=== PATIENT | female | born 1960 ===

== ENCOUNTER 2020-09-03 16:41 | Outpatient (REF) | payer OTHER, SELFPAY | END 2020-09-03 16:42 | disposition home or self-care (01) | LOC: HO.LAB 16:41 | PROVIDERS: Visit Provider Internal Medicine | DX: Z20.828 Contact with and (suspected) exposure to other viral communicable diseases (principal) | CPT/HCPCS: C9803; U0003 ==

== ENCOUNTER 2020-10-01 05:34 | Emergency (ER) | payer OTHER, SELFPAY ==
[2020-10-01 05:59] VITALS: BP 140/74; PULSE 94; RESP 16; TEMP 37.7; O2SAT 98; BMI 25.7
[2020-10-01 06:08] VITALS: PULSE 92; O2SAT 98
--- NOTE | 2020-10-01 06:41 | ED.URI ---
HPI - URI/Sore Throat General Chief Complaint: Upper Respiratory Symptoms Stated Complaint: FEELS ILL COVID + Time Seen by Provider: 10/01/20 06:41 Source: patient Mode of arrival: ambulatory Limitations: no limitations History of Present Illness MD elicited complaint: fever and other (body aches, headache) Pertinent past history: other (dx with COVID yesterday) Onset (ago): day(s) (5) Consistency: constant Severity: severe Able to tolerate fluids by mouth: Yes Exacerbating factors: nothing Relieving factors: NSAID Context: sick contacts and other(s) with similar symptoms Associated symptoms: fever, chills, myalgias and headache Treatments prior to arrival: ibuprofen Related Data Previous Rx's Medication Instructions Recorded cyclobenzaprine 10 mg PO TID PRN #14 tab 10/01/20 hydrocodone-homatropine 5 ml PO Q6H PRN #60 ml 10/01/20 ondansetron 4 mg PO Q8H PRN #20 tab 10/01/20 Allergies Allergy/AdvReac Type Severity Reaction Status Date / Time No Known Allergies Allergy Verified 10/01/20 06:05 Review of Systems Review of Systems: Constitutional : positive Fever, positive Chills, positive fatigue, positive Malaise ENT/Mouth : positive sore throat, positive runny nose Eyes: No Discharge Cardiovascular : No Chest Pain, No SOB Respiratory : No Cough, No Sputum Gastrointestinal : No Nausea, No Vomiting, No Diarrhea Genitourinary : No Dysuria, No Urinary Frequency Musculoskeletal : positive Myalgia Skin : No rash Neuro : No Headache PMFSH Past Medical History Attestation statement: The following information was validated with the patient. Medical History Cholecystectomy planned Diabetes High cholesterol HTN (hypertension) Social History Social History Alcohol intake: never Smoking Status: Never smoker Use of substances other than those prescribed or required for medical reasons: No Advance Directives: No Physical Exam Vital Signs: Vital Signs: Last Vital Signs Temp 99.8 F 10/01/20 05:59 Pulse 94 10/01/20 05:59 Resp 16 10/01/20 05:59 BP 140/74 H 10/01/20 05:59 Pulse Ox 98 10/01/20 06:08 Body Mass Index 25.7 Appearance: Alert. Oriented X3. No acute distress. Eyes: Pupils equal, round and reactive to light. ENT: Pharynx normal. Neck: Normal inspection. Neck supple. CVS: Normal heart rate and rhythm. Pulses normal. Respiratory: No respiratory distress. Breath sounds normal. 97% on RA Abdomen: Soft and non-tender. Skin: Skin warm and dry. Normal skin color. Normal skin turgor. Extremities: No lower extremity edema. No calf ttp Neuro: Oriented X 3. No motor deficit. No sensory deficit. MDM - URI/Sore Throat MDM Narrative Medical decision making narrative: 60 yo female with COVID symptoms (headache, body aches, fatigue) since Wednesday works at local [employer] she is well hydrated, not toxic, clear lungs 97% on RA, will start on supportive meds and discussed expectant course and fever control. Discharge Plan Discharge Clinical Impression: COVID-19 Patient Disposition: Home, Self-Care Instructions: COVID-19 (Coronavirus Disease 2019) (ED) Additional Instructions: return to ED for any worsening symptoms or concerns Prescriptions: New cyclobenzaprine 10 mg tablet 10 mg PO TID PRN (Reason: muscle spasm) Qty: 14 RF: 0 hydrocodone-homatropine 5-1.5 mg/5 mL (5 mL) syrup 5 ml PO Q6H PRN (Reason: cough) Qty: 60 RF: 0 ondansetron 4 mg tablet,disintegrating 4 mg PO Q8H PRN (Reason: nausea and vomiting) Qty: 20 RF: 0 Stand Alone Forms: Work/School Release
[2020-10-01] MEDS: Acetaminophen 325 MG TABLET 650 MG PO (06:49)
== END 2020-10-01 06:55 | disposition home or self-care (01) ==
PROVIDERS: Emergency Provider Emergency Medicine
DX: U07.1 COVID-19 (principal); R50.9 Fever, unspecified; M79.10 Myalgia, unspecified site; Z79.899 Other long term (current) drug therapy
CPT/HCPCS: 99283; 99284

== ENCOUNTER 2020-10-16 12:38 | Outpatient (REF) | payer OTHER, SELFPAY | END 2020-10-16 12:39 | disposition home or self-care (01) | LOC: HO.LAB 12:38 | PROVIDERS: PCP Internal Medicine; Visit Provider Internal Medicine | DX: Z20.828 Contact with and (suspected) exposure to other viral communicable diseases (principal) | CPT/HCPCS: C9803; U0003 ==

== ENCOUNTER 2021-11-21 22:54 | Emergency (ER) | payer OTHER, SELFPAY ==
--- NOTE | 2021-11-21 | ECG_ITS ---
Test Reason : DIZZINESS Blood Pressure : / mmHG Vent. Rate : 067 BPM Atrial Rate : 067 BPM P-R Int : 178 ms QRS Dur : 068 ms QT Int : 412 ms P-R-T Axes : 048 042 040 degrees QTc Int : 435 ms Normal sinus rhythm Normal ECG No previous ECGs available Referred By: Generic ED Physician Electronically Signed By:NERISSA QUIJANO
[2021-11-21 23:26] VITALS: BP 156/61; PULSE 73; RESP 16; TEMP 36.7; O2SAT 98; BMI 25.7
--- NOTE | 2021-11-22 01:34 | ED_ITS ---
HPI - Dizziness General Chief Complaint: Dizziness Stated Complaint: vertigo Time Seen by Provider: 11/22/21 01:23 Source: patient Mode of arrival: ambulatory Limitations: no limitations History of Present Illness MD elicited complaint: dizziness and vertigo Pertinent past history: BPPV Onset (ago): day(s) (2) Timing: sudden onset and intermittent Severity: moderate Description: room spinning Context: change in body position History of similar symptoms: Yes Exacerbating factors: movement/ambulation, change in body position and position/lying down Relieving factors: remaining still and keeping eyes closed Associated symptoms: nausea and vomiting Related Data Previous Rx's Medication Instructions Recorded cyclobenzaprine 10 mg tablet 10 mg PO TID PRN #14 tab 10/01/20 hydrocodone-homatropine 5 mg-1.5 5 ml PO Q6H PRN #60 ml 10/01/20 mg/5 mL (5 mL) oral syrup ondansetron 4 mg disintegrating 4 mg PO Q8H PRN #20 tab 10/01/20 tablet meclizine 25 mg tablet 25 mg PO TID PRN #30 tab 11/22/21 ondansetron 4 mg disintegrating 4 mg PO Q8H PRN #20 tab 11/22/21 tablet Allergies Allergy/AdvReac Type Severity Reaction Status Date / Time No Known Allergies Allergy Verified 11/21/21 23:31 Review of Systems Verdana 4l Review of Systems: Verdana 4d Verdana 4d Constitutional : No Fever, No Chills, No Fatigue ENT/Mouth : No sore throat, No Rhinorrhea Eyes: No Eye Pain, No Swelling, No Redness Cardiovascular : No Chest Pain, No SOB, No Dyspnea on Exertion Respiratory : No Cough, No Sputum GastrointestinalGastrointestinal : pos Nausea, pos Vomiting, No Diarrhea, No abdominal Pain Genitourinary : No Dysuria, No Urinary Frequency, No Hematuria, Musculoskeletal : No joint pain, No Myalgias, No Joint Swelling Skin : No Skin Lesions, No rash Neuro : No Weakness, No Numbness, pos Dizziness, no Headache Psych : No Anxiety/Panic, No Depression Heme/Lymph: No Bruising, No Bleeding,No Lymphadenopathy Endocrine : No Polyuria, No Polydipsia All other systems reviewed and are negative PMFSH Past Medical History Medical History Cholecystectomy planned Diabetes High cholesterol HTN (hypertension) Vertigo Social History Social History (Updated 11/22/21 @ 02:11 by Doris Mireles DO) Alcohol intake: never Patient Tobacco Use Status: Never used Tobacco Physical Exam Verdana 4l Vital Signs: Verdana 4d Verdana 4d Vital Signs: Verdana 4d Verdana 4Bd Last Vital Signs Verdana 4d [employer] New 4d [employer] New 4d Temp 98.3 F 11/22/21 01:58 [employer] New 4d Pulse 72 11/22/21 01:58 [employer] New 4d Resp 16 11/22/21 01:58 BP 148/74 H 11/22/21 01:58 Pulse Ox 98 11/22/21 01:58 BMI result Body Mass Index 25.7 Appearance: Alert. Oriented X3. No acute distress. Eyes: Pupils equal, round and reactive to light. Nystagmus noted when turning head to right and c/o symptoms ENT: Pharynx normal. Normal TMs bilaterally Neck: Normal inspection. Neck supple. CVS: Normal heart rate and rhythm. Pulses normal. Respiratory: No respiratory distress. Breath sounds normal. Abdomen: Soft and non-tender. Skin: Skin warm and dry. Normal skin color. Normal skin turgor. Extremities: No lower extremity edema. No calf ttp Neuro: Oriented X 3. No motor deficit. No sensory deficit. CN 2-12 intact. no drift Course Course Course Narrative: patient feels better stable for DC MDM - Dizziness MDM Narrative Medical decision making narrative: 61 yo female with hx of vertigo, DM, HTN here with c/o room spinning when she moves or turns her head to the right - at this time no neuro deficits no CP/SOB no GIB symptoms, hx of similar presentatino in past with vertigo - will give antivert and ativan. Dispo per results and improvement. Given lack of neuro findings doubt posterior stroke ECG Data Attestation: I personally reviewed and interpreted this ECG as follows: ECG interpretation date: 11/22/21 ECG interpretation time: 02:13 Interpretation: Rate: 92 Rhythm: NSR [place]: normal Normal P waves. Normal ROGERS. Normal QRS complex. ST T wave : artifact but no JACOBO, normal qTC: normal prior studies: no acute ischemia The study has been interpreted contemporaneously by me. . Discharge Plan Discharge Clinical Impression: Dizziness Patient Disposition: Home, Self-Care Instructions: Dizziness (ED) Additional Instructions: return to ED for any worsening symptoms or concerns Prescriptions: New meclizine 25 mg tablet 25 mg PO TID PRN (Reason: dizziness) Qty: 30 0RF ondansetron 4 mg tablet,disintegrating 4 mg PO Q8H PRN (Reason: nausea and vomiting) Qty: 20 0RF No Action cyclobenzaprine 10 mg tablet 10 mg PO TID PRN (Reason: muscle spasm) Qty: 14 0RF hydrocodone-homatropine 5-1.5 mg/5 mL (5 mL) syrup 5 ml PO Q6H PRN (Reason: cough) Qty: 60 0RF ondansetron 4 mg tablet,disintegrating 4 mg PO Q8H PRN (Reason: nausea and vomiting) Qty: 20 0RF Referrals: Physician,Unknown J [Primary Care Provider] - 2 days (if not better) Stand Alone Forms: Work/School Release
[2021-11-22 01:58] VITALS: BP 148/74; PULSE 72; RESP 16; TEMP 36.8; O2SAT 98
[2021-11-22] MEDS: Meclizine HCl 25 MG TABLET PO (02:00)
[2021-11-22] MEDS: LORazepam 1 MG TABLET PO (02:00)
--- NOTE | 2021-11-22 02:02 | PC.NURSE ---
Pt resting on stretcher in NAD, RR even and unlabored, VSS on RA. Pt speaking in complete, clear sentences. No neuro deficits noted. Dr Mireles made aware of pt's report of SANCHEZ, plan to reassess pt's sx s/p meds as ordered. Stretcher in low locked position, rails raised, call albright within reach.
[2021-11-22 02:44] VITALS: BP 133/70; PULSE 68; RESP 16; O2SAT 97
== END 2021-11-22 02:57 | disposition home or self-care (01) ==
LOC: HO.ED 11-22 02:16
PROVIDERS: Emergency Provider Emergency Medicine
DX: R42 Dizziness and giddiness (principal); E11.9 Type 2 diabetes mellitus without complications; I10 Essential (primary) hypertension; E78.5 Hyperlipidemia, unspecified
CPT/HCPCS: 93005; 99283; 99284

== ENCOUNTER 2022-09-28 14:25 | Emergency (ER) | payer OTHER, SELFPAY ==
--- NOTE | ~2022-09-28 | XR_ITS ---
EXAMINATION: XR CHEST CLINICAL INFORMATION: Cough. COMPARISON: Chest x-ray 12/05/2009 TECHNIQUE: 2 views of the chest were obtained. FINDINGS: No significant abnormality is noted involving the heart, lungs, mediastinum, bony thorax or soft tissues. XR/XR chest 2V IMPRESSION: Unremarkable examination.
[2022-09-28 16:38] VITALS: BP 137/68; PULSE 103; RESP 18; TEMP 36.6; O2SAT 97; BMI 25.5
--- NOTE | 2022-09-28 16:41 | ED_ITS ---
HPI - General Adult General Chief complaint: Upper Respiratory Symptoms <Lisseth Clayton MD - Last Filed: 09/28/22 16:44> Stated complaint: fever <Lisseth Clayton MD - Last Filed: 09/28/22 16:44> Time Seen by Provider: 09/28/22 18:29 <Lisseth Clayton MD - Last Filed: 09/28/22 16:44> Source: patient <MINDY Galo - Last Filed: 09/28/22 21:14> Mode of arrival: ambulatory <MINDY Galo - Last Filed: 09/28/22 21:14> Limitations: no limitations <MINDY Galo - Last Filed: 09/28/22 21:14> History of Present Illness HPI narrative: Pt is a 62 yo assigned female at w/ PMHx of HTN, diabetes, and hyperlipidemia presenting w/ a 4 day hx of flu-like symptoms. Reports cough productive of yellow sputum, SOB, fever, myalgias, headache, nausea, and 1 episode of diarrhea today. Denies vomiting, blood in the stool, chest pain, abd pain, long flights, recent surgeries, or use of estrogen therapy. Reports taking tylenol and motrin, last dose around 1:30pm for her fever and symptoms. 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 <MINDY Galo - Last Filed: 09/28/22 21:14> Onset (ago): day(s) <MINDY Galo - Last Filed: 09/28/22 21:14> Related Data Home medications: Previous Rx's Medication Instructions Recorded cyclobenzaprine 10 mg tablet 10 mg PO TID PRN muscle spasm #14 10/01/20 tabs hydrocodone-homatropine 5 mg-1.5 5 ml PO Q6H PRN cough #60 mL 10/01/20 mg/5 mL (5 mL) oral syrup ondansetron 4 mg disintegrating 4 mg PO Q8H PRN nausea and 10/01/20 tablet vomiting #20 tabs meclizine 25 mg tablet 25 mg PO TID PRN dizziness #30 tabs 11/22/21 ondansetron 4 mg disintegrating 4 mg PO Q8H PRN nausea and 11/22/21 tablet vomiting #20 tabs benzonatate 100 mg capsule 100 mg PO TID PRN cough #14 caps 09/28/22 <Lisseth Clayton MD - Last Filed: 09/28/22 16:44> Allergies/adverse reactions: Allergies Allergy/AdvReac Type Severity Reaction Status Date / Time No Known Allergies Allergy Verified 09/28/22 16:43 <Lisseth Clayton MD - Last Filed: 09/28/22 16:44> Review of Systems Review of Systems: Constitutional: + Fever, No Chills, No Fatigue, No Malaise ENT/Mouth: No Ear Pain, No Nasal Congestion, No Sinus Pain, No Hoarseness, No sore throat, No Rhinorrhea, No Swallowing Difficulty Eyes: No Eye Pain, No Swelling, No Redness, No Discharge, No Vision Changes Cardiovascular: + Chest Pain when coughing, + SOB, No Dyspnea on Exertion, No Edema, No Palpitations Respiratory: + Cough, + Sputum, No Wheezing, No Dyspnea Gastrointestinal: + Nausea, No Vomiting, + Diarrhea, No Constipation, No Abdominal pain Genitourinary: No Dysuria, No Urinary Frequency, No Hematuria Musculoskeletal: No joint pain, + Myalgias, No Joint Swelling Skin: No Skin Lesions, No rash Neuro: No Weakness, No Dizziness, No Headache <MINDY Galo - Last Filed: 09/28/22 21:14> Yes all other systems are reviewed and are negative <MINDY Galo - Last Filed: 09/28/22 21:14> Constitutional: Constitutional: Reports as per HPI <MNIDY Galo - Last Filed: 09/28/22 21:14> FOR[facility] Past Medical History Attestation statement: The following information was validated with the patient. <MINDY Galo - Last Filed: 09/28/22 21:14> Medical History: Medical History Cholecystectomy planned Diabetes High cholesterol HTN (hypertension) Vertigo <Lisseth Clayton MD - Last Filed: 09/28/22 16:44> Social History Social History: Social History Alcohol intake: never Patient Tobacco Use Status: Never used Tobacco Advance Directives: No Advance Directives Information Provided: No <Lisseth Clayton MD - Last Filed: 09/28/22 16:44> Physical Exam ED Vital Signs: Vital Signs - 24 hr 09/28/22 16:38 Temperature 98 F Pulse Rate 103 H Respiratory Rate 18 Blood Pressure 137/68 Pulse Oximetry 97 Oxygen Delivery Method Room Air BMI result Body Mass Index 25.5 <Lisseth Clayton MD - Last Filed: 09/28/22 16:44> Vital Signs - 24 hr 09/28/22 16:38 Temperature 98 F Pulse Rate 103 H Respiratory Rate 18 Blood Pressure 137/68 Pulse Oximetry 97 Oxygen Delivery Method Room Air BMI result Body Mass Index 25.5 <MINDY Galo - Last Filed: 09/28/22 21:14> Const General: cooperative, healthy appearing, no acute distress, alert and awake <MINDY Galo - Last Filed: 09/28/22 21:14> Orientation/consciousness: patient oriented x3 <MINDY Galo - Last Filed: 09/28/22 21:14> Limitations: no limitations <MINDY Galo - Last Filed: 09/28/22 21:14> HENMT Head: Yes normal to inspection and Yes atraumatic <MINDY Galo - Last Filed: 09/28/22 21:14> Ears: hearing grossly normal bilaterally, external ears normal, TM's normal bilaterally and mastoids normal <MINDY Galo - Last Filed: 09/28/22 21:14> General nose exam: Normal external nose present <MINDY Galo - Last Filed: 09/28/22 21:14> Face and sinus: Yes normal facial exam <MINDY Galo - Last Filed: 09/28/22 21:14> Throat: Yes posterior oropharynx normal, Yes tonsils normal, Yes uvula midline, No peritonsillar mass, No uvula laterally displaced and No uvular edema <MINDY Galo - Last Filed: 09/28/22 21:14> Eyes General: appearance normal, both eyes and all related structures <MINDY Galo - Last Filed: 09/28/22 21:14> EOM: EOMs intact bilaterally <Julietaebonie Wilkinson PA - Last Filed: 09/28/22 21:14> Neck Neck: Yes normal visual inspection, Yes no lymphadenopathy and Yes no meningeal signs <Julieta Pouljeffry PA - Last Filed: 09/28/22 21:14> Resp Effort & Inspection: normal respiratory effort and no respiratory distress <Julieta Pouljeffry PA - Last Filed: 09/28/22 21:14> Auscultation: clear to auscultation bilaterally, no crackles, no rales, no rhonchi and no wheezes <Julieta Poulmoshet PA - Last Filed: 09/28/22 21:14> Cardio Rate: regular rate <Julieta Pouljeffry PA - Last Filed: 09/28/22 21:14> Heart sounds: S1 normal heart sound present and S2 normal heart sound present <Julieta Pouljeffry PA - Last Filed: 09/28/22 21:14> GI Inspection: Yes normal to inspection <Julieta Wilkinson PA - Last Filed: 09/28/22 21:14> Palpation (GI): Soft to palpation, nontender, no guarding and not rigid <Julieta Pouljeffry PA - Last Filed: 09/28/22 21:14> Skin Rashes: no rashes <Julieta Wilkinson PA - Last Filed: 09/28/22 21:14> Wounds: no wounds <Julieta Wilkinson PA - Last Filed: 09/28/22 21:14> Neuro General: patient oriented x3, tone normal and no meningeal signs <Julieta Wilkinson PA - Last Filed: 09/28/22 21:14> Gait exam (Neuro): Normal gait present <Julieta Wilkinson PA - Last Filed: 09/28/22 21:14> Extrem General: Yes normal to inspection, Yes no pedal edema and Yes no calf tenderness <Julieta Wilkinson PA - Last Filed: 09/28/22 21:14> Course Course Course Narrative: 62F fever since Wednesday, headache, bodyaches, sick contact?-yes. VS Reviewed GEN: NAD HEENT: NC/AT, EOMI/PERRLA, ears wnl, throat PULM: CTAB, no wheeze/rhonchi,rales CVS: ST, no murmurs Ext: warm, dry - CXR, SARS <Lisseth Clayton MD - Last Filed: 09/28/22 16:44> 62F fever since Wednesday, headache, bodyaches, sick contact?-yes. VS Reviewed GEN: NAD HEENT: NC/AT, EOMI/PERRLA, ears wnl, throat PULM: CTAB, no wheeze/rhonchi,rales CVS: ST, no murmurs Ext: warm, dry - CXR, SARS -2110--influenza A positive. Patient out of the window for Tamiflu. Chest x-ray unremarkable Results discussed with patient including worrisome signs and symptoms and strict return precautions, and when to return to the emergency department. They verbalized understanding and feel safe for discharge at this time. <MINDY Galo - Last Filed: 09/28/22 21:14> Medical Decision Making Medical Decision Making MDM Narrative: Pt is a 62 yo assigned female at w/ PMHx of HTN, diabetes, and hyperlipidemia presenting w/ a 4 day hx of flu-like symptoms. On exam mildly tachycardic likely from coughing, NAD, nontoxic appearing, lungs CTA, no pedal edema or calf tenderness. Concern for viral illness vs bronchitis vs pneumonia. 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, low suspicion for ACS/PE Plan: COVID-19/influenza/RSV testing, CXR <MINDY Galo - Last Filed: 09/28/22 21:14> Differential Diagnoses: Differential diagnosis (As above) Differential Diagnosis: The differential diagnosis associated with the patient?s presentation includes: <MINDY Galo - Last Filed: 09/28/22 21:14> Independent interpretation of EKG, rhythm strip, radiology study: Independent interp EKG,rhythm strip, radiology study I performed an independent interpretation of the: Plain X-Ray My interpretation is unremarkable <MINDY Galo - Last Filed: 09/28/22 21:14> Non-ED record review: Review of External (Non-ED) Record External record reviewed:: Outpatient record, Prior outpatient labs and Prior outpatient radiology <MINDY Galo Last Filed: 09/28/22 21:14> Tests considered but not performed: Tests Considered But Not Performed (Labs) The following testing was considered but ultimately not selected after discussion with patient/family. <MINDY Galo - Last Filed: 09/28/22 21:14> Chronic conditions affecting care (e.g., diabetes, HTN): Chronic conditions affecting care (e.g., diabetes, HTN) Patient?s care impacted by: Diabetes and Hypertension <MINDY Galo - Last Filed: 09/28/22 21:14> Discharge Plan Discharge Clinical Impression: Influenza A <Lisseth Clayton MD - Last Filed: 09/28/22 16:44> Patient Disposition: Home, Self-Care <Lisseth Clayton MD - Last Filed: 09/28/22 16:44> Instructions: Influenza (ED) <Lisseth Clayton MD - Last Filed: 09/28/22 16:44> Additional Instructions: You have influenza A. Take Tylenol and Motrin as needed. Rest. Stay hydrated. Wash your hands and cover her mouth. Youre contagious Your x-ray was unremarkable. If symptoms persist or worsen return to the emergency department Dee Aguayo are for cough take as needed <Lisseth Clayton MD - Last Filed: 09/28/22 16:44> Prescriptions: New benzonatate 100 mg capsule 100 mg PO TID PRN (Reason: cough) Qty: 14 0RF No Action cyclobenzaprine 10 mg tablet 10 mg PO TID PRN (Reason: muscle spasm) Qty: 14 0RF hydrocodone-homatropine 5-1.5 mg/5 mL (5 mL) syrup 5 ml PO Q6H PRN (Reason: cough) Qty: 60 0RF ondansetron 4 mg tablet,disintegrating 4 mg PO Q8H PRN (Reason: nausea and vomiting) Qty: 20 0RF meclizine 25 mg tablet 25 mg PO TID PRN (Reason: dizziness) Qty: 30 0RF ondansetron 4 mg tablet,disintegrating 4 mg PO Q8H PRN (Reason: nausea and vomiting) Qty: 20 0RF <Lisseth Clayton MD - Last Filed: 09/28/22 16:44> Referrals: Rajesh Hernandez MD [Primary Care Provider] - 5 days <Lisseth Clayton MD - Last Filed: 09/28/22 16:44> Stand Alone Forms: Work/School Release <Lisseth Clayton MD - Last Filed: 09/28/22 16:44>
[2022-09-28 20:25] LABS: Influenza A PCR POSITIVE (Negative); Influenza B PCR NEGATIVE (Negative); Resp Syncy Virus RNA Qual PCR NEGATIVE (Negative); SARS COV2 PCR INHOUSE NEGATIVE (Negative)
[2022-09-28 21:11] VITALS: BP 110/58; PULSE 71; RESP 12; TEMP 37.2; O2SAT 96
--- NOTE | 2022-09-28 21:27 | PC.NURSE ---
Eval by PA, pt positive for influenza A. Plan for DC home, pt aware and agreeable to plan of care.
== END 2022-09-28 21:31 | disposition home or self-care (01) ==
PROVIDERS: Student in an Organized Health Care Education/Training Program; Emergency Provider Emergency Medicine; PCP Internal Medicine
DX: J10.1 Influenza due to other identified influenza virus with other respiratory manifestations (principal); R50.9 Fever, unspecified; R06.02 Shortness of breath; M79.10 Myalgia, unspecified site; R51.9 Headache, unspecified; R19.7 Diarrhea, unspecified; Z20.822 Contact with and (suspected) exposure to COVID-19; Z79.899 Other long term (current) drug therapy
CPT/HCPCS: 0241U; 71046; 99283

== ENCOUNTER 2023-04-20 07:51 | Outpatient (REF) | payer OTHER, SELFPAY ==
[2023-04-20 08:01] LABS: MANUAL DIFF FLAG NO
[2023-04-20 08:18] LABS: Basophils Absolute Auto 0.1 X10*3/uL (0.0-0.2); Basophils Percent Auto 0.6 % (0-2); Eosinophils Absolute Auto 0.3 X10*3/uL (0.0-0.4); Eosinophils Percent Auto 3.6 % (0-4); Hematocrit 33.7 % (37.0-47.0); Hemoglobin 11.4 g/dl (12.0-16.0); Imm Gran Abs Auto 0.02 X10*3/uL (0.00-0.03); Imm Gran Pct Auto 0.3 % (0.0-0.4); Lymphocytes Absolute Auto 3.7 X10*3/uL (1.2-4.9); Lymphocytes Percent Auto 46.5 % (20-40); Mean Corpuscular HGB Conc 33.8 g/dl (31.0-35.0); Mean Corpuscular Volume 88.7 fL (80.0-98.0); Mean Platelet Volume 10.4 fL (9.4-12.3); Monocytes Absolute Auto 0.4 X10*3/uL (0.1-1.2); Monocytes Percent Auto 5.3 % (2-11); Neutrophils Absolute Auto 3.5 x10*3/uL (2.0-8.3); Neutrophils Percent Auto 43.7 % (45-73); Platelet Count 422 X10*3/uL (160-400); Red Cell Distribution Width 13.5 % (11.0-16.0)
[2023-04-20 08:37] LABS: Estimated Average Glucose 286 mg/dL; Hemoglobin A1c % 11.6 %
[2023-04-20 09:20] LABS: Creatinine Urine 190.34 mg/dL; Microalbum/Creatinine Ratio Ur 20.4 ug/mg cr
[2023-04-20 09:21] LABS: Alanine Aminotransferase 10 U/L (0-31); Albumin Level 3.9 g/dL (3.5-5.0); Alkaline Phosphatase 82 U/L (39-117); Anion Gap 14 (12-20); Aspartate Amino Transferase 13 U/L (5-31); Bilirubin Total 0.4 mg/dL (0.0-1.0); Blood Urea Nitrogen 19 mg/dL (9-16); Calcium 9.3 mg/dL (8.4-10.2); Carbon Dioxide 24 mmol/L (22-29); Chloride 105 mmol/L (96-108); Cholesterol 274 mg/dL; Estimated Glomerular Filt Rate > 60; Glucose Random 278 mg/dL (60-115); HDL Cholesterol 53 mg/dL; LDL Cholesterol Calculated 200 mg/dl; Potassium 3.9 mmol/L (3.3-5.1); Sodium 139 mmol/L (135-145); Total Protein 7.1 g/dL (6.5-8.0); Triglycerides 105 mg/dL
[2023-04-20 09:30] LABS: Vitamin D 25-OH Total 31.5 ng/mL (>30)
== END 2023-04-20 07:52 | disposition home or self-care (01) ==
LOC: HO.LAB 07:51
PROVIDERS: PCP Internal Medicine; Visit Provider Internal Medicine
DX: Z00.01 Encounter for general adult medical examination with abnormal findings (principal); E11.65 Type 2 diabetes mellitus with hyperglycemia; E78.00 Pure hypercholesterolemia, unspecified; H81.10 Benign paroxysmal vertigo, unspecified ear; I10 Essential (primary) hypertension; M75.02 Adhesive capsulitis of left shoulder; M81.8 Other osteoporosis without current pathological fracture
CPT/HCPCS: 36415; 80053; 80061; 82043; 82306; 83036; 85025

== ENCOUNTER 2023-07-22 06:42 | Outpatient (REF) | payer OTHER, SELFPAY ==
[2023-07-22 07:14] LABS: Estimated Average Glucose 232 mg/dL; Hemoglobin A1c % 9.7 % (<6.0)
[2023-07-22 07:22] LABS: Alanine Aminotransferase 8 U/L (0-31); Albumin Level 4.3 g/dL (3.5-5.0); Alkaline Phosphatase 78 U/L (39-117); Anion Gap 13 (12-20); Aspartate Amino Transferase 14 U/L (5-31); Bilirubin Total 0.2 mg/dL (0.0-1.0); Blood Urea Nitrogen 23 mg/dL (9-16); Carbon Dioxide 26 mmol/L (22-29); Chloride 105 mmol/L (96-108); Cholesterol 152 mg/dL (<200); Estimated Glomerular Filt Rate 56; Glucose Random 190 mg/dL (60-115); HDL Cholesterol 54 mg/dL (>40); LDL Cholesterol Calculated 84 mg/dL (<100); Potassium 3.9 mmol/L (3.3-5.1); Sodium 140 mmol/L (135-145); Total Protein 7.8 g/dL (6.5-8.0); Triglycerides 71 mg/dL (<150)
== END 2023-07-22 06:43 | disposition home or self-care (01) ==
LOC: HO.LAB 06:42
PROVIDERS: PCP Internal Medicine; Visit Provider Internal Medicine
DX: E11.65 Type 2 diabetes mellitus with hyperglycemia (principal); E78.00 Pure hypercholesterolemia, unspecified; R80.8 Other proteinuria
CPT/HCPCS: 36415; 80053; 80061; 83036

== ENCOUNTER 2023-08-06 14:00 | Outpatient (RCR) | payer OTHER, SELFPAY ==
--- NOTE | 2023-06-29 18:15 | MHC.PT.EP ---
[facility] [place] Office [place] Office [place] Office [address] Nathan Chávez [address] [phone] F: [phone] F: [phone] F: [phone] F: [phone] Physical Therapy Plan of Care Date of Evaluation: 06/29/23 Date of Surgery: Diagnosis: RIGHT shoulder adhesive capsulitis Assessment: Patient is a pleasant 62 y.o. female who is referred to PT by Dr. Mago Horn MD, with Dx of RIGHT shoulder adhesive capsulitis. She is also showing subacromial impingement syndrome, cannot rule out RTC involvement at this time. Patient impairments include pain, capsular pattern, capsular end feel, limited ROM, weakness, poor posture. Patient current functional limitations are reaching overhead, washing hair, picking up things from refrigerator, carrying groceries, reach behind back, driving to turn steering wheel, sleeping on R side. Patient will benefit from skilled PT to address aforementioned impairments and functional limitations to meet established goals. Frequency and Duration: The patient will be seen 1-2x/week for 4 weeks Short Term Goals: 2 weeks Patient demonstrates consistency and independence with HEP to self manage symptoms. Retirement Goals: 4 weeks Patient presents with increased R shoulder flexion 160 degrees to reach overhead to high shelf/cabinet. Patient presents with increased R shoulder IR 70 degrees to reach behind back to put on bra. Treatment Plan: Modalities to reduce pain, spasms and effusion. Manual therapy to restore motion and function. Therapeutic exercise to improve strength and flexibility. Neuromuscular re-education for posture and balance. Therapeutic activities to return to functional activities of daily living. Electronically signed by: Pauline Phelps, PT, DPT Please sign and return to therapist. Thank you for your referral.
--- NOTE | 2023-10-04 16:33 | MHC.PT.DC ---
[facility] [place] Office [place] Office [place] Office [address] Nathan Chávez [address] [phone] F: [phone] F: [phone] F: [phone] F: [phone] Physical Therapy Discharge Report Diagnosis: RIGHT shoulder adhesive capsulitis Date of Surgery: Date of Evaluation: 06/29/23 Date of Discharge: 10/04/23 Treatments to Date: 4 Cancellations to Date: No Shows to Date: Discharge Status: Improved Function Independent with HEP Patient Elected to Stop Discharge Summary: Patient canceled her last 2 scheduled PT visits and ceased attending PT on her own accord. Her last visit was on 08/06/23 and assessment read, Her AROM in her R shoulder continues to improve and she shows consistency with HEP as she demonstrates great form. 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 Electronically signed by: Pauline Phelps, PT, DPT Please sign and return to therapist. Thank you for your referral.
== END 2023-10-04 16:33 | disposition home or self-care (01) ==
LOC: HO.PT 14:00
PROVIDERS: PCP Internal Medicine; Visit Provider Internal Medicine
DX: M75.01 Adhesive capsulitis of right shoulder (principal)
CPT/HCPCS: 97110; 97140; 97161; 97530

== ENCOUNTER 2023-10-20 07:01 | Outpatient (REF) | payer OTHER, SELFPAY ==
[2023-10-20 07:35] LABS: Estimated Average Glucose 280 mg/dL; Hemoglobin A1c % 11.4 % (<6.0)
[2023-10-20 07:48] LABS: Alanine Aminotransferase 17 U/L (0-31); Albumin Level 4.2 g/dL (3.5-5.0); Alkaline Phosphatase 81 U/L (39-117); Anion Gap 12 (12-20); Aspartate Amino Transferase 19 U/L (5-31); Bilirubin Total 0.3 mg/dL (0.0-1.0); Blood Urea Nitrogen 22 mg/dL (9-16); Calcium 9.7 mg/dL (8.4-10.2); Carbon Dioxide 26 mmol/L (22-29); Chloride 104 mmol/L (96-108); Estimated Glomerular Filt Rate 60; Glucose Random 263 mg/dL (60-115); Potassium 3.9 mmol/L (3.3-5.1); Sodium 138 mmol/L (135-145); Total Protein 7.9 g/dL (6.5-8.0)
== END 2023-10-20 07:02 | disposition home or self-care (01) ==
LOC: HO.LAB 07:01
PROVIDERS: PCP Internal Medicine; Visit Provider Internal Medicine
DX: E11.65 Type 2 diabetes mellitus with hyperglycemia (principal); E78.00 Pure hypercholesterolemia, unspecified; I10 Essential (primary) hypertension; R80.8 Other proteinuria
CPT/HCPCS: 36415; 80053; 83036

== ENCOUNTER 2024-02-17 06:35 | Outpatient (REF) | payer OTHER, SELFPAY ==
[2024-02-17 08:07] LABS: Estimated Average Glucose 249 mg/dL; Hemoglobin A1c % 10.3 % (<6.0)
[2024-02-17 08:42] LABS: Alanine Aminotransferase 11 U/L (0-31); Albumin Level 4.2 g/dL (3.5-5.0); Alkaline Phosphatase 67 U/L (39-117); Anion Gap 10 (12-20); Aspartate Amino Transferase 12 U/L (5-31); Bilirubin Total 0.2 mg/dL (0.0-1.0); Blood Urea Nitrogen 19 mg/dL (9-16); Calcium 9.8 mg/dL (8.4-10.2); Carbon Dioxide 30 mmol/L (22-29); Chloride 104 mmol/L (96-108); Estimated Glomerular Filt Rate > 60; Glucose Random 243 mg/dL (60-115); Sodium 140 mmol/L (135-145); Total Protein 7.6 g/dL (6.5-8.0)
== END 2024-02-17 06:36 | disposition home or self-care (01) ==
LOC: HO.LAB 06:35
PROVIDERS: PCP Internal Medicine; Visit Provider Internal Medicine
DX: E11.9 Type 2 diabetes mellitus without complications (principal); E78.00 Pure hypercholesterolemia, unspecified; I10 Essential (primary) hypertension
CPT/HCPCS: 36415; 80053; 83036

== ENCOUNTER 2024-05-30 09:04 | Outpatient (REF) | payer OTHER, SELFPAY ==
[2024-05-30 09:27] LABS: MANUAL DIFF FLAG NO
[2024-05-30 10:14] LABS: Basophils Absolute Auto 0.1 X10*3/uL (0.0-0.2); Basophils Percent Auto 0.8 % (0-2); Eosinophils Absolute Auto 0.2 X10*3/uL (0.0-0.4); Eosinophils Percent Auto 2.2 % (0-4); Hematocrit 32.2 % (37.0-47.0); Imm Gran Abs Auto 0.03 X10*3/uL (0.00-0.03); Imm Gran Pct Auto 0.4 % (0.0-0.4); Lymphocytes Absolute Auto 3.1 X10*3/uL (1.2-4.9); Lymphocytes Percent Auto 39.9 % (20-40); Mean Corpuscular HGB Conc 34.2 g/dl (31.0-35.0); Mean Corpuscular Hemoglobin 30.6 pg (27.0-33.0); Mean Corpuscular Volume 89.4 fL (80.0-98.0); Mean Platelet Volume 10.4 fL (9.4-12.3); Monocytes Absolute Auto 0.4 X10*3/uL (0.1-1.2); Monocytes Percent Auto 5.3 % (2-11); Neutrophils Percent Auto 51.4 % (45-73); Platelet Count 408 X10*3/uL (160-400); Red Cell Distribution Width 14.8 % (11.0-16.0); White Blood Count 7.7 X10*3/uL (4.8-10.8)
[2024-05-30 11:17] LABS: Alanine Aminotransferase 13 U/L (0-31); Albumin Level 4.3 g/dL (3.5-5.0); Alkaline Phosphatase 66 U/L (39-117); Anion Gap 14 (12-20); Aspartate Amino Transferase 14 U/L (5-31); Bilirubin Total 0.2 mg/dL (0.0-1.0); Blood Urea Nitrogen 23 mg/dL (9-16); Calcium 9.8 mg/dL (8.4-10.2); Carbon Dioxide 27 mmol/L (22-29); Chloride 104 mmol/L (96-108); Estimated Glomerular Filt Rate 56; Glucose Random 156 mg/dL (60-115); Potassium 4.3 mmol/L (3.3-5.1); Sodium 141 mmol/L (135-145); Total Protein 7.6 g/dL (6.5-8.0)
[2024-05-30 11:36] LABS: Creatinine Urine 103.83 mg/dL; Microalbum/Creatinine Ratio Ur 54.8 ug/mg cr (<30)
[2024-05-30 12:14] LABS: Vitamin B12 426 pg/mL (200-900)
[2024-05-30 12:48] LABS: Estimated Average Glucose 186 mg/dL; Hemoglobin A1c % 8.1 % (<6.0)
== END 2024-05-30 09:05 | disposition home or self-care (01) ==
LOC: HO.LAB 09:04
PROVIDERS: PCP Internal Medicine; Visit Provider Internal Medicine
DX: E11.65 Type 2 diabetes mellitus with hyperglycemia (principal); E78.00 Pure hypercholesterolemia, unspecified; I10 Essential (primary) hypertension; R80.8 Other proteinuria
CPT/HCPCS: 36415; 80053; 82043; 82570; 82607; 83036; 85025

== ENCOUNTER 2024-09-06 07:38 | Outpatient (REF) | payer OTHER, SELFPAY ==
[2024-09-06 08:44] LABS: Estimated Average Glucose 197 mg/dL; Hemoglobin A1c % 8.5 % (<6.0); Total Hemoglobin (HGBA1C) 2971.1707 umol/L
[2024-09-06 08:56] LABS: Alanine Aminotransferase 26 U/L (0-31); Albumin Level 4.3 g/dL (3.5-5.0); Alkaline Phosphatase 81 U/L (39-117); Anion Gap 13 (12-20); Aspartate Amino Transferase 24 U/L (5-31); Bilirubin Total 0.2 mg/dL (0.0-1.0); Blood Urea Nitrogen 21 mg/dL (9-16); Calcium 9.3 mg/dL (8.4-10.2); Carbon Dioxide 27 mmol/L (22-29); Chloride 104 mmol/L (96-108); Estimated Glomerular Filt Rate 53; Glucose Random 205 mg/dL (60-115); Potassium 4.1 mmol/L (3.3-5.1); Sodium 140 mmol/L (135-145); Total Protein 7.7 g/dL (6.5-8.0)
== END 2024-09-06 07:39 | disposition home or self-care (01) ==
LOC: HO.LAB 07:38
PROVIDERS: PCP Internal Medicine; Visit Provider Internal Medicine
DX: Z00.00 Encounter for general adult medical examination without abnormal findings (principal); E11.649 Type 2 diabetes mellitus with hypoglycemia without coma; E78.00 Pure hypercholesterolemia, unspecified; I10 Essential (primary) hypertension; K21.9 Gastro-esophageal reflux disease without esophagitis; R80.8 Other proteinuria
CPT/HCPCS: 36415; 80053; 83036

== ENCOUNTER 2024-12-22 06:29 | Outpatient (REF) | payer OTHER, SELFPAY ==
[2024-12-22 07:55] LABS: Estimated Average Glucose 180 mg/dL; Hemoglobin A1C 188.5328 umol/L; Hemoglobin A1c % 7.9 % (<6.0); Total Hemoglobin (HGBA1C) 2979.2777 umol/L
[2024-12-22 08:36] LABS: Alanine Aminotransferase 12 U/L (0-31); Albumin Level 4.1 g/dL (3.5-5.0); Alkaline Phosphatase 76 U/L (39-117); Anion Gap 13 (12-20); Aspartate Amino Transferase 18 U/L (5-31); Bilirubin Total 0.1 mg/dL (0.0-1.0); Blood Urea Nitrogen 21 mg/dL (9-16); Calcium 9.6 mg/dL (8.4-10.2); Carbon Dioxide 25 mmol/L (22-29); Chloride 107 mmol/L (96-108); Estimated Glomerular Filt Rate > 60; Glucose Random 169 mg/dL (60-115); Sodium 141 mmol/L (135-145); Total Protein 7.8 g/dL (6.5-8.0)
== END 2024-12-22 06:30 | disposition home or self-care (01) ==
LOC: HO.LAB 06:29
PROVIDERS: PCP Internal Medicine; Visit Provider Internal Medicine
DX: E11.649 Type 2 diabetes mellitus with hypoglycemia without coma (principal); R80.8 Other proteinuria; Z68.23 Body mass index [BMI] 23.0-23.9, adult
CPT/HCPCS: 36415; 80053; 83036

== ENCOUNTER 2025-03-29 06:35 | Outpatient (REF) | payer OTHER, SELFPAY ==
--- OUTSIDE RECORDS SUMMARY | 2025-03-29 06:38 | XMS_ITS | Clinical Summary ---
Author Organization [employer] [facility] ity Address [address] [place] [address] Care Team Providers Care Plate Mill Mill Hand Name Role Phone Unavailable Primary Care Provider Unavailabl e Social History Tobacco Use Types Packs/Day Years Used Date Smoking Tobacco: Never Assessed Comments Unknown Sex and Gender Information Value Date Recorded Sex Assigned at Not on file Legal Sex Female 8:56 PM EST Gender Identity Not on file Sexual Orientation Not on file Plan of Treatment Health Maintenance Due Date Last Done Comments DTaP,Tdap,and Td Vaccines (1 - Tdap) 1981 Cervical Cancer Screening: Pap Smear 1983 Pneumococcal Vaccine: 50+ Years (1 of 1 - PCV) 2012 Zoster Vaccines (1 of 2) 2012 Colorectal Cancer Screening: Colonoscopy 10/07/2022 Depression Screening 10/07/2022 HIV Screening 10/07/2022 Hepatitis C Screening 10/07/2022 Social Influencers of Health Screening 10/07/2022 COVID-19 Vaccine ( - season) 2024 Influenza Vaccine (Season Ended) 2025 Breast Cancer Screening 08/23/2026 08/23/20 24, 12/30/2022, 07/19/2020, Additional history exists RSV Immunization Adult Patients (1 - 1-dose 75+ series) 2037 HIB Vaccines Aged Out No longer eligi ble based on patient's age to complete this topic HPV Vaccines Aged Out No longer eligi ble based on patient's age to complete this topic Hepatitis A Vaccines Aged Out No long er eligible based on patient's age to complete this topic Hepatitis B Vaccines Aged Out No long er eligible based on patient's age to complete this topic IPV Vaccines Aged Out No longer eligi ble based on patient's age to complete this topic MMR Vaccines Aged Out No longer eligi ble based on patient's age to complete this topic Meningococcal ACWY Vaccine Aged Out N o longer eligible based on patient's age to complete this topic Meningococcal B Vaccine Aged Out No l onger eligible based on patient's age to complete this topic Pneumococcal Vaccine: Pediatrics (0 to 5 Years) and At-Risk Patients (6 to 64 Years) Aged Out No longer eligible based on patient's age to complete this topic RSV Immunization Patients Under 20 months Aged Out No longer eligible based on patient's age to complete this topic Varicella Vaccines Aged Out No longer eligible based on patient's age to complete this topic Procedures Procedure Name Priority Date/Time Associated Diagnosis Comments RAUL SCREENING DIGITAL Routine 08/23/2024 3:50 PM EDT from Last 3 Months or Most Recently Relevant to Health Maintenance Results * RAUL SCREENING DIGITAL (08/23/2024 3:50 PM EDT) Anatomical Region Laterality Modality Mammography 08/23/2024 1:55 PM EDT Narrative 08/23/2024 3:[address] [facility] Diagnostic Imaging Department [address] [place] [address] Patient: ??DENISHA BARRERA ?/Age/Sex: 1960 - 63 - F Unit#: ??[id number] ? Location/Status: ??SPDIMAM/REG CLI ? Mnemonic/Ordering Site: ??[facility] Ordering Physician: ??MAGO HOFFMAN MD [facility] Screening Digital - 08/23/24 - 1422 Report Status:Signed EXAM: Raul Screening Digital EXAM DATE AND TIME: 08/23/2024 2:22 PM HISTORY: ??Screening. COMPARISON: ??12/29/22, 07/19/20, 12/14/18 TECHNIQUE: Bilateral digital breast tomosynthesis was performed in the CC and MLO projections. Computer aided detection with [employer] 3D 3.1 was employed. TISSUE DENSITY: b. There are scattered areas of fibroglandular density. FINDINGS: No suspicious masses, grouped microcalcifications, or areas of architectural distortion are seen. The skin and vascularity are unremarkable. IMPRESSION: Stable mammographic appearance of the breasts. ??No evidence of malignancy is seen. A negative mammogram in the presence of a clinically suspicious palpable abnormality does not preclude the possibility of malignancy or alter the indications for biopsy. BI-RADS: ??Category 1: Negative RECOMMENDATION(S): 1: Routine screening mammogram BILATERAL in 1 year. Mammogram performed at [facility] [place] [address] Dictating Physician: ??KAYLIE DEL ANGEL MD Electronically Signed by: ??KAYLIE DEL ANGEL MD Dic Date/Time: ??08/23/24 1549 Sign date/Time: ??08/23/24 1550 Procedure Note Kaylie Del Angel MD - 08/26/2024 [facility] Diagnostic Imaging Department [address] [place] [address] Patient: DENISHA BARRERA/Age/Sex: 1960 - 63 - F Unit#: [id number] Location/Status: SPDIMAM/REG CLI Mnemonic/Ordering Site: [facility] Ordering Physician: MAGO HOFFMAN MD [facility] Screening Digital - 08/23/24 - 1422 Report Status:Signed EXAM: [facility] Screening Digital EXAM DATE AND TIME: 08/23/2024 2:22 PM HISTORY: Screening. COMPARISON: 12/29/22, 07/19/20, 12/14/18 TECHNIQUE: Bilateral digital breast tomosynthesis was performed in the CCand MLO projections. Computer aided detection with [employer] 3D 3.1was employed. TISSUE DENSITY: b. There are scattered areas of fibroglandular density. FINDINGS: No suspicious masses, grouped microcalcifications, or areas ofarchitectural distortion are seen. The skin and vascularity are unremarkable. IMPRESSION: Stable mammographic appearance of the breasts. No evidence of malignancyis seen. A negative mammogram in the presence of a clinically suspicious palpable abnormality does not preclude the possibility of malignancy or alter the indications for biopsy. BI-RADS: Category 1: Negative RECOMMENDATION(S): 1: Routine screening mammogram BILATERAL in 1 year. Mammogram performed at [facility] [place] [address] Dictating Physician: KAYLIE DEL ANGEL MD Electronically Signed by: KAYLIE DEL ANGEL MD Dic Date/Time: 08/23/24 1549 Sign date/Time: 08/23/24 2723 us Mago Hoffman MD IMG BI PROCEDURES Final Resul t from Last 3 Months or Most Recently Relevant to Health Maintenance
[2025-03-29 07:33] LABS: Estimated Average Glucose 194 mg/dL; Hemoglobin A1c % 8.4 % (<6.0)
[2025-03-29 07:57] LABS: Alanine Aminotransferase 10 U/L (0-31); Albumin Level 4.2 g/dL (3.5-5.0); Alkaline Phosphatase 79 U/L (39-117); Anion Gap 11 (12-20); Aspartate Amino Transferase 17 U/L (5-31); Bilirubin Total 0.1 mg/dL (0.0-1.0); Blood Urea Nitrogen 20 mg/dL (9-16); Calcium 9.8 mg/dL (8.4-10.2); Carbon Dioxide 25 mmol/L (22-29); Chloride 107 mmol/L (96-108); Estimated Glomerular Filt Rate 58; Glucose Random 157 mg/dL (60-115); Potassium 3.9 mmol/L (3.3-5.1); Sodium 139 mmol/L (135-145); Total Protein 7.3 g/dL (6.5-8.0)
== END 2025-03-29 06:36 | disposition home or self-care (01) ==
LOC: HO.LAB 06:35
PROVIDERS: PCP Internal Medicine; Visit Provider Internal Medicine
DX: I10 Essential (primary) hypertension (principal); R80.8 Other proteinuria; Z68.24 Body mass index [BMI] 24.0-24.9, adult; Z13.1 Encounter for screening for diabetes mellitus
CPT/HCPCS: 36415; 80053; 83036

== ENCOUNTER 2025-07-09 06:46 | Outpatient (REF) | payer OTHER, SELFPAY ==
--- OUTSIDE RECORDS SUMMARY | 2025-07-09 06:50 | XMS_ITS | Clinical Summary ---
Author Organization [employer] [facility] ity Address [address] [place] [address] Care Team Providers Care Store Keeper Name Role Phone Unavailable Primary Care Provider [...] 2) 2012 Colorectal Cancer Screening: Colonoscopy 10/07/2022 HIV Screening 10/07/2022 Hepatitis C Screening 10/07/2022 Social Influencers of Health Screening 10/07/2022 Depression Screening 10/25/2024 COVID-19 Vaccine ( season) 2025 Influenza Vaccine (#1) 2025 Breast Cancer Screening 08/23/2026 08/23/20 24, [...] PM EDT Narrative 08/23/2024 3:50 PM EDT [facility] Diagnostic Imaging Department [address] [place] [address] Patient: DENISHA BARRERA /Age/Sex: 1960 - 63 - F Unit#: [id number] Location/Status: SPDIMAM/REG CLI Mnemonic/Ordering Site: [facility] Ordering Physician: MAGO HOFFMAN MD Raul Screening Digital - 08/23/24 - [id number] Report Status:Signed EXAM: Raul Screening Digital EXAM DATE AND TIME: 08/23/2024 2:22 PM HISTORY: Screening. COMPARISON: 12/29/22, 07/19/20, 12/14/18 TECHNIQUE: Bilateral digital breast tomosynthesis was performed in the CC and MLO projections. Computer aided detection with [employer] 3D 3.1 was employed. TISSUE DENSITY: b. There are scattered areas of fibroglandular density. FINDINGS: No suspicious masses, grouped microcalcifications, or areas of architectural distortion are seen. The skin and vascularity are unremarkable. IMPRESSION: Stable mammographic appearance of the breasts. No evidence of malignancy is seen. A negative mammogram in the presence of a clinically suspicious palpable abnormality does not preclude the possibility of malignancy or alter the indications for biopsy. BI-RADS: Category 1: Negative RECOMMENDATION(S): 1: Routine screening mammogram BILATERAL in 1 year. Mammogram performed at [facility] [place] [address] Dictating Physician: KAYLIE DEL ANGEL MD Electronically Signed by: KAYLIE DEL ANGEL MD Dic Date/Time: 08/23/24 1549 Sign date/Time: 08/23/24 1550 Procedure Note Kaylie Del Angel MD - 08/26/2024 [facility] Diagnostic Imaging Department [address] [place] [address] Patient: DENISHA BARRERA D.O.B./Age/Sex: 1960 - 63 - F Unit#: [id number] Location/Status: SPDIMA/REG CLI Mnemonic/Ordering Site: [facility] Ordering Physician: MAGO HOFFMAN MD [facility] Screening Digital - 08/23/24 - 1422 Report Status:Signed EXAM: Raul Screening Digital EXAM DATE AND TIME: 08/23/2024 2:22 PM HISTORY: Screening. COMPARISON: 12/29/22, 07/19/20, 12/14/18 TECHNIQUE: Bilateral digital breast tomosynthesis was performed in the CCand MLO projections. Computer aided detection with [employer] 3D 3.1was employed. TISSUE DENSITY: b. There [...] Mammogram performed at [place] [address] Dictating Physician: KAYLIE DEL ANGEL MD Electronically Signed by: KAYLIE DEL ANGEL MD Dic Date/Time: 08/23/24 1549 Sign date/Time: 08/23/24 9239 us Mago Hoffman MD IMG BI PROCEDURES Final Resul t from Last 3 Months or Most Recently Relevant to Health Maintenance
[2025-07-09 06:58] LABS: MANUAL DIFF FLAG NO
[2025-07-09 07:25] LABS: Hematocrit 33.2 % (37.0-47.0); Hemoglobin 11.1 g/dl (12.0-16.0); Imm Gran Abs Auto 0.03 X10*3/uL (0.00-0.03); Imm Gran Pct Auto 0.4 % (0.0-0.4); Lymphocytes Absolute Auto 3.2 X10*3/uL (1.2-4.9); Mean Corpuscular HGB Conc 33.4 g/dl (31.0-35.0); Mean Corpuscular Hemoglobin 29.9 pg (27.0-33.0); Mean Corpuscular Volume 89.5 fL (80.0-98.0); NRBC Abs Auto 0.000 X10*3/uL (0.0-0.012); NRBC Pct Auto 0.0 /100WBC (0.0-0.2); Platelet Count 395 X10*3/uL (160-400); Red Blood Count 3.71 X10*6/uL (4.20-5.50); White Blood Count 7.7 X10*3/uL (4.8-10.8)
[2025-07-09 07:34] LABS: Hemoglobin A1C 207.7337 umol/L; Total Hemoglobin (HGBA1C) 2987.5192 umol/L
[2025-07-09 07:52] LABS: Microalbum/Creatinine Ratio Ur 12.6 ug/mg cr (<30)
[2025-07-09 08:03] LABS: Alanine Aminotransferase 14 U/L (0-31); Albumin Level 4.1 g/dL (3.5-5.0); Alkaline Phosphatase 74 U/L (39-117); Anion Gap 13 (12-20); Aspartate Amino Transferase 20 U/L (5-31); Blood Urea Nitrogen 20 mg/dL (9-16); Calcium 9.1 mg/dL (8.4-10.2); Carbon Dioxide 24 mmol/L (22-29); Chloride 106 mmol/L (96-108); Cholesterol 308 mg/dL (<200); Estimated Glomerular Filt Rate > 60; HDL Cholesterol 63 mg/dL (>40); Potassium 3.8 mmol/L (3.3-5.1); Sodium 139 mmol/L (135-145); Total Protein 7.2 g/dL (6.5-8.0); Triglycerides 140 mg/dL (<150)
[2025-07-09 08:16] LABS: Vitamin B12 399 pg/mL (200-900)
== END 2025-07-09 06:47 | disposition home or self-care (01) ==
LOC: HO.LAB 06:46
PROVIDERS: PCP Internal Medicine; Visit Provider Internal Medicine
DX: E11.65 Type 2 diabetes mellitus with hyperglycemia (principal); E78.00 Pure hypercholesterolemia, unspecified; I10 Essential (primary) hypertension; R80.8 Other proteinuria
CPT/HCPCS: 36415; 80053; 80061; 82043; 82570; 82607; 83036; 85025

== ENCOUNTER 2025-10-11 06:59 | Outpatient (REF) | payer OTHER, SELFPAY ==
--- OUTSIDE RECORDS SUMMARY | 2025-10-11 07:01 | XMS_ITS | Patient Health Record ---
Author Organization [facility] Address [address] [place] [address] Care Team Providers Care Order Processing Clerk Name Role Phone CRISTOFER CROUCH MD Primary Care Provider JEZ Todd Unavailable [phone] Allergies Allergen (clinical drug ingredient) Drug/Non Drug Allergy documented on EMR Reaction Allergy Type Onset Date Status empagliflozin Jardiance Unknown Drug Allergy Act shanthi dulaglutide Trulicity Unknown Drug Allergy Activ e Reason For Referral No Information Medications Medication SIG (Take, Route, Frequency, Duration) Notes Start Date End Date Status metFORMIN HCl 1000 MG Tablet 1 tab(s) orally 2 times a day; Duration: 30 day(s) Active Lisinopril 20 MG Tablet 1 tab(s) orally once a day; Duration: 30 day(s) Active Farxiga 5 MG Tablet 1 tab(s) orally once a day; Duration: 30 day(s) Active Vitamin D3 25 MCG (1000 UT) Capsule 1 cap(s) orally once a day; Duration: 30 day(s) Active Atorvastatin Calcium 20 MG Tablet 1 tab(s) orally once a day; Duration: 30 day(s) Active glipiZIDE 5 MG Tablet 1 tab(s) orally once a day; Duration: 30 day(s) Active Golytely - POWDER FOR RECONSTITUTION 240 ML ORALLY EVERY 15 MINUTES; Duration: 16 DOSE(S) NAME ONLY Conversion from Multum Review and pick correct strength-formulati on from Medispan options. If intended option is not shown, discontinue and re-order from Quick Search. Active Social History Tobacco Use: Social History Observation Description Date Details (start date - stop date) Former Smoker NA - NA Social History Tobacco Use: Social Info Question Answer Notes Smoking Are you a: former smoker When did you stop Smoking ? 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 exposure: no alcohol use: no drug use: quit 15 years ag o Hobbies/Exercise habits: walking Coffee/Tea/Soda: yes Coffee 2 cups a day Marital Status experience no Living with alone Pets none Plan Of Treatment No Information Insurance Providers Payer Name Payer Address Payer Phone Subscriber Number Group Number Insured Name Patient Relationship to Insured Coverage Start Date Coverage End Date [employer] [address] [place] [address] [id number] DENISHA BLAND Self - patient is the insured Medical (General) History Medical History History ICD Code diabetes hypercholesterolemia hypertension Colonoscopy 05/18/19 8mm poly p in the ascending colon examination was otherwise normal on direct and and retroflexion views Path: tubular adenoma Surgical History Surgery Date(Month/Year) c-sections x 3 cholecystectomy
--- OUTSIDE RECORDS SUMMARY | 2025-10-11 07:01 | XMS_ITS | Clinical Summary ---
Author Organization [employer] [facility] ity Address [address] [place] [address] Care Team Providers Care House Builder Name Role Phone Unavailable Primary Care Provider Unavailabl e Social History Tobacco Use Types Packs/Day Years Used Date Smoking Tobacco: Never Assessed Comments Unknown Sex and Gender Information Value Date Recorded Sex Assigned at Not on file Legal Sex Female 8:56 PM EST Gender Identity Not on file Sexual Orientation Not on file Plan of Treatment Health Maintenance Due Date Last Done Comments Colorectal Cancer Screening: Colonoscopy 1962 DTaP,Tdap,and Td Vaccines (1 - Tdap) 1981 Cervical Cancer Screening: Pap Smear 1983 Pneumococcal Vaccine: 50+ Years (1 of 1 - PCV) 2012 Zoster Vaccines (1 of 2) 2012 HIV Screening 10/07/2022 Hepatitis C Screening 10/07/2022 Social Influencers of Health Screening 10/07/2022 Depression Screening 10/25/2024 COVID-19 Vaccine ( - season) 2025 Influenza Vaccine (#1) 2025 Breast [...] PM EDT Narrative 08/23/2024 3:50 PM EDT [facility] Diagnostic Imaging Department [address] [place] [address] Patient: DENISHA BARRERA /Age/Sex: 1960 - 63 - F Unit#: [id number] Location/Status: SPDIMAM/REG CLI Mnemonic/Ordering Site: [facility] Ordering Physician: MAGO HOFFMAN MD Raul Screening Digital - 08/23/24 - [id number] Report Status:Signed EXAM: Raul Screening Digital EXAM DATE AND TIME: 08/23/2024 2:22 PM HISTORY: Screening. COMPARISON: 12/29/22, 07/19/20, 12/14/18 TECHNIQUE: Bilateral digital breast tomosynthesis was performed in the CC and MLO projections. Computer aided detection with [employer] 3D 3.1 was employed. TISSUE DENSITY: b. [...] Mammogram performed at [facility] [place] [address] Dictating Physician: KAYLIE DEL ANGEL MD Electronically Signed by: KAYLIE DEL ANGEL MD Dic Date/Time: 08/23/24 1549 Sign date/Time: 08/23/24 1550 Procedure Note Kaylie Del Angel MD - 08/26/2024 [facility] Diagnostic Imaging Department [address] [place] [address] Patient: DENISHA BARRERA D.O.B./Age/Sex: 1960 - 63 - F Unit#: [id number] Location/Status: SPDIMA/REG CLI Mnemonic/Ordering Site: [facility] Ordering Physician: MAGO HOFFMAN MD [facility] Screening Digital - 08/23/24 - 1422 Report Status:Signed EXAM: [facility] Screening Digital EXAM DATE AND TIME: 08/23/2024 2:22 PM HISTORY: Screening. COMPARISON: 12/29/22, 07/19/20, 12/14/18 TECHNIQUE: Bilateral digital breast tomosynthesis was performed in the CCand MLO projections. Computer aided detection with [employer] 3D 3.1was employed. TISSUE DENSITY: b. There [...] Mammogram performed at [facility] [place] [address] Dictating Physician: KAYLIE DEL ANGEL MD Electronically Signed by: KAYLIE DEL ANGEL MD Dic Date/Time: 08/23/24 1549 Sign date/Time: 08/23/24 3863 us Mago Hoffamn MD IMG BI PROCEDURES Final Resul t from Last 3 Months or Most Recently Relevant to Health Maintenance
[2025-10-11 08:13] LABS: Alanine Aminotransferase 16 U/L (0-31); Albumin Level 4.4 g/dL (3.5-5.0); Alkaline Phosphatase 76 U/L (39-117); Anion Gap 11 (12-20); Aspartate Amino Transferase 23 U/L (5-31); Blood Urea Nitrogen 25 mg/dL (9-16); Calcium 9.1 mg/dL (8.4-10.2); Carbon Dioxide 25 mmol/L (22-29); Chloride 107 mmol/L (96-108); Cholesterol 161 mg/dL (<200); Estimated Glomerular Filt Rate > 60; HDL Cholesterol 58 mg/dL (>40); Potassium 3.7 mmol/L (3.3-5.1); Sodium 139 mmol/L (135-145); Total Protein 7.1 g/dL (6.5-8.0); Triglycerides 64 mg/dL (<150)
== END 2025-10-11 07:00 | disposition home or self-care (01) ==
LOC: HO.LAB 06:59
PROVIDERS: PCP Internal Medicine; Visit Provider Internal Medicine
DX: Z00.00 Encounter for general adult medical examination without abnormal findings (principal); Z13.1 Encounter for screening for diabetes mellitus; E11.3299 Type 2 diabetes mellitus with mild nonproliferative diabetic retinopathy without macular edema, unspecified eye; E78.00 Pure hypercholesterolemia, unspecified; Z68.24 Body mass index [BMI] 24.0-24.9, adult
CPT/HCPCS: 36415; 80053; 80061; 83036